=== PATIENT | female | born 1970 | race Caucasian/White ===

== ENCOUNTER → 2016-04-02 15:47 | Outpatient (CLI) | payer MEDICARE, MEDICAID ==
[2009-04-21 13:31] VITALS: BMI 20.8
[2016-04-02 16:36] LABS: INR 0.96 (0.85-1.17); PROTIME 12.6 SECONDS (11.6-15.0)
[2016-04-02 16:52] LABS: % SATURATION 21 % (15-55); IRON 96 ug/dl (35-150); TOTAL IRON BIND CAPACITY 446 ug/dl (260-445); UNSAT IRON BIND CAPACITY 350 ug/dl (150-375)
[2016-04-02 17:03] LABS: ALBUMIN 4.1 g/dL (3.4-5.0); ANION GAP 13.2 mmol/L (8-16); BILIRUBIN - TOTAL 0.19 mg/dL (0.2-1.3); CALCIUM 9.2 mg/dL (8.5-10.1); CARBON DIOXIDE 29.6 mmol/L (21.0-32.0); CREATININE - SERUM 0.9 mg/dL (0.6-1.3); POTASSIUM - SERUM 3.8 mmol/L (3.5-5.1); PROTEIN - SERUM 7.8 g/dL (6.4-8.2); T4 THYROXIN - FREE 0.84 ng/dL (0.76-1.46); THYROID STIMULATING HORMONE 2.77 uIU/mL (0.36-3.74)
[2016-04-04 15:25] LABS: HEPATITIS C ANTIBODY >11.0 (0.0-0.9)
== END | disposition home or self-care (01) ==
LOC: D.RAD 15:47
PROVIDERS: Internal Medicine Gastroenterology
DX: D64.9 Anemia, unspecified (principal); R10.9 Unspecified abdominal pain; R53.83 Other fatigue; B18.2 Chronic viral hepatitis C; K59.00 Constipation, unspecified